=== PATIENT | female | born 1970 ===

== ENCOUNTER 2018-03-18 10:17 | Emergency (ER) | payer MEDICAID ==
[2018-03-18 11:28] LABS: Hematocrit 40.1 % (30.3-42.9); Hemoglobin 13.4 gm/dl (10.1-14.3); Mean Corpuscular HGB Conc 34 % (30-34); Mean Corpuscular Hemoglobin 33 pg (28-32); Mean Corpuscular Volume 99 fl (79-97); Platelet Count 174 K/mm3 (140-440); Red Blood Count 4.03 M/mm3 (3.65-5.03); Red Cell Distribution Width 14.4 % (13.2-15.2)
[2018-03-18 11:41] LABS: BUN/Creatinine Ratio 17; Blood Urea Nitrogen 12 mg/dL (7-17); Calcium 9.1 mg/dL (8.4-10.2); Hemolysis Index 8
[2018-03-18] MEDS ORDERED: PROVENTIL IH ONE ×2 (11:52→14:52)
[2018-03-18] MEDS ORDERED: SOLU-Medrol IV ONE (11:52)
[2018-03-18] MEDS ORDERED: ATROVENT IH ONE (11:52)
--- NOTE | 2018-03-18 12:00 | Emergency Department Report ---
- General Chief Complaint: Adult Asthma Stated Complaint: S.O.B Time Seen by Provider: 03/18/18 11:23 Source: patient Mode of arrival: Ambulatory Limitations: No Limitations - History of Present Illness Initial Comments: 48-year-old female with reports of shortness of breath 3 days. Patient has history of asthma. States is out of her inhaler but has been doing nebulizer treatments at home without relief. Patient ran out of albuterol nebs 2 days ago. Patient reports fever of 104, productive cough, body aches. Patient denies receiving a flu shot this season. Patient reports chest pain with cough. Denies leg swelling or calf pain. Pt has history of HTN, states took her HCTZ this AM. MD Complaint: fever, cough -: days(s) (3) Severity: moderate Consistency: constant Improves With: nothing Worsens With: activity Associated Symptoms: fever, headache, cough, chest pain, shortness of breath. denies: nausea, vomiting Treatments Prior to Arrival: other (neb treatments) - Related Data Home Medications Medication Instructions Recorded Confirmed Last Taken ALBUTEROL NEB's [Proventil] 2.5 mg IH TID PRN 08/27/15 03/18/18 Unknown Ipratropium Davey [Atrovent Hfa] 12.9 gm IH DAILY 08/27/15 03/18/18 Unknown Lisinopril/Hydrochlorothiazide 1 each PO DAILY 03/18/18 03/18/18 Unknown [Zestoretic 10-12.5 mg Tablet] Previous Rx's Medication Instructions Recorded Last Taken Type Budesoni/Formoterol 80-4.5(Nf) 2 puff IH BID #1 inha 08/28/15 Unknown Rx [Symbicort 80-4.5 (Nf)] ALBUTEROL Inhaler(NF) [VENTOLIN 1 puff IH Q4HR PRN #1 inha 03/18/18 Unknown Rx Inhaler(NF)] ALBUTEROL NEB's [Proventil 0.083% 2.5 mg IH TID PRN #100 neb 03/18/18 Unknown Rx NEBS] Benzonatate [Tessalon Perles] 100 mg PO Q8HR PRN #20 capsule 03/18/18 Unknown Rx levoFLOXacin [Levaquin] 750 mg PO QDAY #5 tablet 03/18/18 Unknown Rx predniSONE [Prednisone] 50 mg PO DAILY #7 tablet 03/18/18 Unknown Rx Allergies Allergy/AdvReac Type Severity Reaction Status Date / Time No Known Allergies Allergy Unverified 08/27/15 09:04 ED Review of Systems ROS: Stated complaint: S.O.B Other details as noted in HPI ED Past Medical Hx - Past Medical History Hx Hypertension: Yes Hx Arthritis: Yes Hx Asthma: Yes - Surgical History Additional Surgical History: Partial hysterectomy - Social History Smoking Status: Never Smoker Substance Use Type: Alcohol, Marijuana - Medications Home Medications: Home Medications Medication Instructions Recorded Confirmed Last Taken Type ALBUTEROL NEB's [Proventil] 2.5 mg IH TID PRN 08/27/15 03/18/18 Unknown History Ipratropium Davey [Atrovent Hfa] 12.9 gm IH DAILY 08/27/15 03/18/18 Unknown History Budesoni/Formoterol 80-4.5(Nf) 2 puff IH BID #1 inha 08/28/15 03/18/18 Unknown Rx [Symbicort 80-4.5 (Nf)] ALBUTEROL Inhaler(NF) [VENTOLIN 1 puff IH Q4HR PRN #1 inha 03/18/18 Unknown Rx Inhaler(NF)] ALBUTEROL NEB's [Proventil 0.083% 2.5 mg IH TID PRN #100 neb 03/18/18 Unknown Rx NEBS] Benzonatate [Tessalon Perles] 100 mg PO Q8HR PRN #20 capsule 03/18/18 Unknown Rx Lisinopril/Hydrochlorothiazide 1 each PO DAILY 03/18/18 03/18/18 Unknown History [Zestoretic 10-12.5 mg Tablet] levoFLOXacin [Levaquin] 750 mg PO QDAY #5 tablet 03/18/18 Unknown Rx predniSONE [Prednisone] 50 mg PO DAILY #7 tablet 03/18/18 Unknown Rx ED Physical Exam - General Limitations: No Limitations ED Course Vital Signs 03/18/18 03/18/18 03/18/18 10:43 11:47 12:00 Temperature 99.2 F Pulse Rate 112 H 71 Respiratory 24 16 12 Rate Blood Pressure 234/135 169/101 Blood Pressure [Right] O2 Sat by Pulse 97 97 Oximetry 03/18/18 03/18/18 03/18/18 12:16 12:30 12:46 Temperature Pulse Rate 79 91 H 83 Respiratory 16 17 19 Rate Blood Pressure 137/118 137/118 137/118 Blood Pressure [Right] O2 Sat by Pulse 96 96 95 Oximetry 03/18/18 03/18/18 03/18/18 13:00 13:01 13:08 Temperature 98.0 F Pulse Rate 96 H 99 H Respiratory 15 17 Rate Blood Pressure 137/118 Blood Pressure 149/90 [Right] O2 Sat by Pulse 100 100 Oximetry 03/18/18 03/18/18 03/18/18 13:16 13:30 13:46 Temperature Pulse Rate 95 H 102 H 110 H Respiratory 16 17 21 Rate Blood Pressure 177/80 177/80 149/90 Blood Pressure [Right] O2 Sat by Pulse 100 100 97 Oximetry 03/18/18 03/18/18 03/18/18 14:00 14:16 14:30 Temperature Pulse Rate 123 H 124 H 125 H Respiratory 16 16 15 Rate Blood Pressure 149/90 165/72 165/72 Blood Pressure [Right] O2 Sat by Pulse 94 95 93 Oximetry - Reevaluation(s) Reevaluation #1: 03/18/18 14:26 Pt feeling much better at this time. Feels ok for discharge home. Improved air movement. O2 sats 94% on RA. ED Medical Decision Making - Lab Data Result diagrams: 03/18/18 11:13 03/18/18 11:13 - EKG Data -: EKG Interpreted by Sd EKG shows normal: sinus rhythm, axis, intervals, QRS complexes, ST-T waves Rate: normal - Radiology Data Radiology results: report reviewed, image reviewed ROUTINE CHEST, TWO VIEWS: HISTORY: Shortness of breath. The trachea, heart, mediastinal contour, lung dangelo and bony thorax are unremarkable. IMPRESSION: Unremarkable chest x-ray. No significant change since 08/27/15. Transcribed By: TTR Dictated By: PEDRITO OLMSTEAD JR, MD Electronically Authenticated By: PEDRITO OLMSTEAD JR, MD Signed Date/Time: 03/18/18 1213 - Medical Decision Making 48-year-old female with acute asthma exacerbation. Patient reports fever, productive cough at home. Initially patient presented with diffuse wheezing and decreased air movement and bilateral lung dangelo. Patient was given a nebulizer treatment, Solu-Medrol, and mag sulfate bolus. Labs show no elevated white blood cell count. Flu swab negative. Chest x-ray negative. Symptoms much improved following treatment. Patient still has some residual wheezing however O2 sats 94% on room air. Patient states feels okay for discharge at this time. We will give prescription for steroids, Levaquin due to report of fever with productive cough, albuterol, and cough medication. - Differential Diagnosis pneumonia, inluenza, URI, asthma Critical care attestation.: If time is entered above; I have spent that time in minutes in the direct care of this critically ill patient, excluding procedure time. ED Disposition Clinical Impression: Asthma with acute exacerbation Disposition: TO HOME OR SELFCARE Is pt being admited?: No Condition: Stable Instructions: Asthma (ED) Prescriptions: ALBUTEROL Inhaler(NF) [VENTOLIN Inhaler(NF)] 1 puff IH Q4HR PRN #1 inha PRN Reason: Wheezing ALBUTEROL NEB's [Proventil 0.083% NEBS] 2.5 mg IH TID PRN #100 neb PRN Reason: Wheezing Benzonatate [Tessalon Perles] 100 mg PO Q8HR PRN #20 capsule PRN Reason: Cough levoFLOXacin [Levaquin] 750 mg PO QDAY #5 tablet predniSONE [Prednisone] 50 mg PO DAILY #7 tablet Referrals: PRIMARY CARE, [Primary Care Provider] - 3-5 Days
--- NOTE | 2018-03-18 12:15 | XRay Report ---
ROUTINE CHEST, TWO VIEWS: HISTORY: Shortness of breath. The trachea, heart, mediastinal contour, lung dangelo and bony thorax are unremarkable. IMPRESSION: Unremarkable chest x-ray. No significant change since 08/27/15.
[2018-03-18 12:25] LABS: Basophils % (Manual) 0 % (0.0-1.8); Eosinophils % (Manual) 0 % (0.0-4.3); Total Cells Counted 100
[2018-03-18 12:26] LABS: Platelet Estimate Consistent w Auto; RBC Morphology Normal
[2018-03-18] MEDS ORDERED: MAGNESIUM SULFATE 2GM/50ML 2 GM/50 ML BAG IV ONE (12:52)
[2018-03-18 14:44] VITALS: BP 165/72
== END 2018-03-18 15:15 | disposition home or self-care (01) ==
LOC: ED 10:17
DX: J45.901 Unspecified asthma with (acute) exacerbation (principal); I10 Essential (primary) hypertension; M19.90 Unspecified osteoarthritis, unspecified site; F12.90 Cannabis use, unspecified, uncomplicated; Z90.710 Acquired absence of both cervix and uterus
CPT/HCPCS: 36415; 71046; 80048; 85007; 85025; 87400; 93005; 93010; 94640; 96365; 96375; 99284; J2930; J3475